=== PATIENT | male | born 1975 | race Caucasian/White ===

== ENCOUNTER 2020-06-24 14:11 | Emergency (ER) | payer OTHER ==
[~2020-06-24] VITALS: Ht 188 cm; Wt 99.8 kg
[2020-06-24 14:33] VITALS: BP 124/82
--- NOTE | 2020-06-24 14:39 | NUR ---
WAIT AT LOBBY
--- NOTE | 2020-06-24 15:48 | NUR ---
PATIENT PRESENTS TO ED WITH LEFT ANKLE PAIN S/P INJURY . PT STATES THAT HE ROLLED HIS ANKLE WHILE AT WORK. DENIES N/V/D; SKIN IS PINK/WARM/DRY; AAOX4 WITH EVEN AND STEADY GAIT; LUNGS CLEAR BL; HR EVEN AND REGULAR; PT DENIES ANY FEVER, CP, SOB, OR COUGH AT THIS TIME; PATIENT STATES PAIN OF 8/10 AT THIS TIME; VSS; PATIENT POSITIONED FOR COMFORT; HOB ELEVATED; BEDRAILS UP X2; BED DOWN. ER MD MADE AWARE OF PT STATUS.
[2020-06-24 16:05] VITALS: BP 112/80
--- NOTE | 2020-06-24 16:12 | NUR ---
Patient discharged with v/s stable. Written and verbal after care instructions given and explained. Patient verbalized understanding. Ambulatory with [facility]. All questions addressed prior to discharge. Advised to follow up with PMD.
== END 2020-06-24 16:12 | disposition home or self-care (01) ==
LOC: MED 14:11
DX: S93.402A Sprain of unspecified ligament of left ankle, initial encounter (principal); B19.20 Unspecified viral hepatitis C without hepatic coma; Z98.890 Other specified postprocedural states; X58.XXXA Exposure to other specified factors, initial encounter; Y93.89 Activity, other specified; Y92.89 Other specified places as the place of occurrence of the external cause; Y99.8 Other external cause status
CPT/HCPCS: 73610; 99283

== ENCOUNTER 2022-01-10 18:21 | Emergency (ER) | payer OTHER ==
[~2022-01-10] VITALS: Ht 185.4 cm; Wt 106.6 kg
[2022-01-10 18:33] VITALS: BP 163/99
--- NOTE | 2022-01-10 19:15 | NUR ---
SEEN AND EXAMINED BY HEATHER , WITH ORDERS AND CARRIED OUT.
[2022-01-10] MEDS ORDERED: IBUP-2218 PO (19:26)
[2022-01-10 20:13] VITALS: BP 138/89
--- NOTE | 2022-01-10 20:13 | NUR ---
Patient discharged with v/s stable. Written and verbal after care instructions given and explained. Patient alert, oriented and verbalized understanding of instructions. Ambulatory with . All questions addressed prior to discharge. ID band removed. Patient advised to follow up with PMD. Rx of IBUPROFEN given. Patient educated on indication of medication including possible reaction and side effects. Opportunity to ask questions provided and answered.
--- NOTE | 2022-01-10 20:17 | NUR ---
Zaid parmar in EDM - 01/10/22 at 2019 by [facility] TO BED [address] JIM AT BEDSIDE TO EXAMINE
== END 2022-01-10 20:13 | disposition home or self-care (01) ==
LOC: MED 18:21
DX: S92.351A Displaced fracture of fifth metatarsal bone, right foot, initial encounter for closed fracture (principal); Z79.899 Other long term (current) drug therapy; Z86.73 Personal history of transient ischemic attack (TIA), and cerebral infarction without residual deficits; X50.1XXA Overexertion from prolonged static or awkward postures, initial encounter; Y93.01 Activity, walking, marching and hiking; Y92.89 Other specified places as the place of occurrence of the external cause; Y99.8 Other external cause status
CPT/HCPCS: 29515; 73610; 73630; 99284